=== PATIENT | female | born 1975 | race Caucasian/White ===

== ENCOUNTER → 2018-09-22 | Outpatient (CLI) | payer BC ==
[~2018-09-22] MED LIST: CLIN150 PO; Clindamycin HC150 MG PO
[2018-09-22 16:41] LABS: BASOPHILS ABSOLUTE AUTO 0.01 K/mm3 (0.00-0.23); BASOPHILS PERCENT AUTO 0 % (0-2); EOSINOPHILS PERCENT AUTO 0 % (0-6); Hematocrit 31.3 % (33.0-51.0); Hemoglobin 8.8 g/dL (11.5-16.0); IMMATURE GRAN ABSOLUTE AUTO 0.03 K/mm3 (0.00-0.10); IMMATURE GRAN PERCENT AUTO 0 % (0-1); LYMPHOCYTES ABSOLUTE AUTO 0.94 K/mm3 (0.84-5.20); LYMPHOCYTES PERCENT AUTO 9 % (21-46); MONOCYTES ABSOLUTE AUTO 0.72 K/mm3 (0.16-1.47); MONOCYTES PERCENT AUTO 7 % (4-13); Mean Corpuscular HGB 19.8 pg (26.0-34.0); Mean Corpuscular HGB Conc 28.1 g/dL (31.5-36.5); Mean Corpuscular Volume 70 fL (80-100); Mean Platelet Volume 10.3 fL (9.1-12.4); NEUTROPHILS ABSOLUTE AUTO 8.71 K/mm3 (1.96-9.15); NEUTROPHILS PERCENT AUTO 84 % (41-73); Platelet Count 325 K/mm3 (150-400); RDW Coefficient Variation 16.6 % (11.7-14.2); RDW Standard Deviation 41.7 fL (35.1-46.3); Red Blood Cell Count 4.45 M/mm3 (3.80-5.20); White Blood Cell Count 10.41 K/mm3 (4.00-11.30)
== END ==
LOC: LAB SHORT 16:29 → LAB 16:29
DX: B99.9 Unspecified infectious disease (principal)
CPT/HCPCS: 85025

== ENCOUNTER 2018-09-23 15:03 | Emergency (ER) | payer BC ==
[~2018-09-23] VITALS: Ht 162.6 cm; Wt 54.4 kg
[2018-09-23 15:56] LABS: BASOPHILS ABSOLUTE AUTO 0.02 K/mm3 (0.00-0.23); BASOPHILS PERCENT AUTO 0 % (0-2); EOSINOPHILS ABSOLUTE AUTO 0.01 K/mm3 (0.00-0.68); EOSINOPHILS PERCENT AUTO 0 % (0-6); Hematocrit 32.7 % (33.0-51.0); Hemoglobin 9.2 g/dL (11.5-16.0); IMMATURE GRAN ABSOLUTE AUTO 0.04 K/mm3 (0.00-0.10); IMMATURE GRAN PERCENT AUTO 0 % (0-1); LYMPHOCYTES ABSOLUTE AUTO 1.22 K/mm3 (0.84-5.20); LYMPHOCYTES PERCENT AUTO 11 % (21-46); MONOCYTES ABSOLUTE AUTO 0.83 K/mm3 (0.16-1.47); MONOCYTES PERCENT AUTO 8 % (4-13); Mean Corpuscular HGB 20.3 pg (26.0-34.0); Mean Corpuscular HGB Conc 28.1 g/dL (31.5-36.5); Mean Corpuscular Volume 72 fL (80-100); Mean Platelet Volume 9.7 fL (9.1-12.4); NEUTROPHILS ABSOLUTE AUTO 8.68 K/mm3 (1.96-9.15); NEUTROPHILS PERCENT AUTO 80 % (41-73); Platelet Count 362 K/mm3 (150-400); RDW Standard Deviation 43.2 fL (35.1-46.3); Red Blood Cell Count 4.53 M/mm3 (3.80-5.20)
[2018-09-23 16:16] LABS: Anion Gap 8 mmol/L (6-16); Blood Urea Nitrogen 8 mg/dL (8-24); Bun/Creatinine Ratio 10.9 (12.0-20.0); CO2, Blood 24 mmol/L (21-32); Calcium, Blood 8.8 mg/dL (8.5-10.1); Chloride, Blood 107 mmol/L (98-108); Creatinine, Blood 0.73 mg/dL (0.40-1.00); Glomerular Filtration Rate >60 (60-); Glucose, Blood 106 mg/dL (70-99); Potassium, Blood 3.9 mmol/L (3.5-5.5); Sodium, Blood 139 mmol/L (136-145)
[2018-09-23] MEDS ORDERED: CLIN150 PO (18:09)
[2018-09-23] MEDS ORDERED: Clindamycin HC150 MG PO (21:01)
== END 2018-09-23 22:30 | disposition home or self-care (01) ==
LOC: ER 15:03
PROVIDERS: Physician Assistant
DX: L03.213 Periorbital cellulitis (principal); Z88.8 Allergy status to other drugs, medicaments and biological substances; Z88.6 Allergy status to analgesic agent
CPT/HCPCS: 36415; 70481; 80048; 83605; 85025; 96365-59; 96367-59; 96375-59; 99283-25; J0690; J1200; J3370; Q9967

== ENCOUNTER → 2019-05-26 | Outpatient (CLI) | payer BC | END | disposition home or self-care (01) | LOC: LAB SHORT 08:21 → LAB 08:21 | DX: L08.9 Local infection of the skin and subcutaneous tissue, unspecified (principal) | CPT/HCPCS: 87070; 87077; 87147; 87186; 87205 ==